=== PATIENT | female | born 1990 | race American Indian/Alaskan Native ===

== ENCOUNTER 2021-10-15 12:44 | Outpatient (CLI) | payer OTHER ==
--- NOTE | 2021-10-15 15:20 | XRay Report ---
Lumbar spine 5 views INDICATION: Low back pain. No history of injury IMPRESSION: No fracture or subluxation is identified. Minimal to mild facet arthropathy at L5-S1 with out significant neural foraminal stenosis. Signer Name: Enio Padilla MD Signed: 10/15/2021 3:15 PM Workstation Name: [email or web address]
== END 2021-10-15 12:45 | disposition home or self-care (01) ==
LOC: XRAY 12:44
PROVIDERS: ATTEND Family Medicine
DX: M47.817 Spondylosis without myelopathy or radiculopathy, lumbosacral region (principal)
CPT/HCPCS: 72110